=== PATIENT | male | born 1945 ===

== ENCOUNTER 2017-01-01 15:30 | Emergency (ER) | payer MEDICARE, BC ==
--- NOTE | 2017-01-01 16:22 | UC ---
Hip/Pelvis Pain - HPI Summary HPI Summary: 71 yo male was using chainsaw cutting firewood fell backwards landing on left buttock was able to get right up and continue cutting drove tractor in from [place] and noted increased pain/swelling remote hx pelvis fx - History Of Current Complaint Chief Complaint: UCLowerExtremity Stated Complaint: HIP INJURY Time Seen by Provider: 01/01/17 15:36 Hx Obtained From: Patient Mechanism Of Injury: fell backwards Onset/Duration: Sudden Onset Timing: Constant Severity Initially: Mild Severity Currently: Moderate Pain Intensity: 4 - 8-10 if he sits Pain Scale Used: 0-10 Numeric Location: Discrete At: - left buttodk Character Of Pain: Dull, Aching Aggravating Factor(s): Other - sitting Alleviating Factor(s): Position Associated Signs And Symptoms: Positive: Swelling - Allergies/Home Medications Allergies/Adverse Reactions: Allergies Allergy/AdvReac Type Severity Reaction Status Date / Time Penicillin G Allergy Hives Verified 01/01/17 15:41 Home Medications: Home Medications Cyanocobalamin [Vitamin B 12] 500 mcg PO DAILY 01/01/17 [History Confirmed 01/01] Multiple Vitamins W/ Minerals [Centrum Silver 50+Men] 1 tab PO DAILY 01/01/17 [ History Confirmed 01/01/17] [place]-3 Fatty Acids [Fish Oil] 1,000 mg PO DAILY 01/01/17 [History Confirmed 06/15] PMH/Surg Hx/FS Hx/Imm Hx Previously Healthy: Yes - Surgical History Surgical History: Yes Surgery Procedure, Year, and Place: spleen removed, partial pancreas, 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 - Family History Known Family History: Positive: Hypertension - Social History Alcohol Use: Daily Substance Use Type: None Smoking Status (MU): Never Smoked Tobacco Review of Systems Constitutional: Negative Skin: Negative Eyes: Negative ENT: Negative Respiratory: Negative Cardiovascular: Negative Gastrointestinal: Negative Genitourinary: Negative Motor: Negative Neurovascular: Negative Musculoskeletal: Arthralgia, Myalgia Neurological: Negative Psychological: Negative Is Patient Immunocompromised?: No All Other Systems Reviewed And Are Negative: Yes Physical Exam Triage Information Reviewed: Yes Appearance: Well-Appearing, No Pain Distress, Well-Nourished Vital Signs: Initial Vital Signs Temp 97.3 F 01/01/17 15:36 Pulse 85 01/01/17 15:36 Resp 18 01/01/17 15:36 BP 145/77 01/01/17 15:36 Pulse Ox 100 01/01/17 15:36 Vital Signs Reviewed: Yes Eyes: Positive: Conjunctiva Clear ENT: Positive: Hearing grossly normal. Negative: Nasal congestion, Nasal drainage, Trismus, Muffled/hoarse voice Neck: Positive: Supple, Nontender Respiratory: Positive: Lungs clear, Normal breath sounds, No respiratory distress Cardiovascular: Positive: RRR, No Murmur Abdomen Description: Positive: Nontender, No Organomegaly, Soft Bowel Sounds: Positive: Present Musculoskeletal: Positive: ROM Intact, No Edema Neurological: Positive: Alert Psychological Exam: Normal Skin: Positive: rashes Diagnostics - Radiology No standard instances Xray Interpretation: No Acute Changes - IMPRESSION: Age indeterminant cortical irregularity at the iliopectineal line and inferior pubic ramus. These could be chronic findings but there is no radiographic available for comparison to be certain about chronicity. If there is strong clinical concern for fracture of the pelvis noncontrast CT of the pelvis is advised. Radiology Interpretation Completed By: Radiologist Re-Evaluation - Re-Evaluation First Eval Re-Evaluation Time: 17:04 Change: Unchanged - declines analgesic Hip Injury Course/Dx - Course Course Of Treatment: 1. Intramuscular hematoma involving the left gluteal musculature. 2. No acute fracture or dislocation. The cortical irregularity seen at the left pubic. ramus appears to be an old healed fracture. patient aware of need to go to ER if pain worsens - Differential Dx/Diagnosis Provider Diagnoses: Left gluteal hematoma Discharge - Discharge Plan Condition: Stable Disposition: HOME Prescriptions: Naproxen Sodium [Naproxen Sodium 500 MG TAB] 500 mg PO BID PRN #30 tab PRN Reason: Pain Patient Education Materials: Hematoma (ED) Referrals: Vivek Kerns MD [Medical Doctor] - 1 Day Additional Instructions: you have a large hematoma in your left gluteus muscle I suggest you get this recheck tomorrow sometimes these need to get evacuated to ER for worsening pain Images Front/Back of Body, Lg ([place]): 1 - tender/swollen
[2017-01-01] MEDS ORDERED: Naproxen TAB* 250 MG PO ONE (16:32)
--- NOTE | 2017-01-01 16:36 | RAD ---
INDICATION: Left hip pain overlying the left buttock after a fall COMPARISON: None TECHNIQUE: 3 views of the left hip were obtained. FINDINGS: On the AP view of the pelvis there is cortical irregularity along the iliopectineal line. There is also cortical irregularity at the inferior pubic ramus. There is no radiographically apparent fracture of the left hip. Degenerative changes of the bilateral hips include joint space narrowing and sclerotic change of the acetabular roof. IMPRESSION: Age indeterminant cortical irregularity at the iliopectineal line and inferior pubic ramus. These could be chronic findings but there is no radiographic available for comparison to be certain about chronicity. If there is strong clinical concern for fracture of the pelvis noncontrast CT of the pelvis is advised.
[2017-01-01 17:48] VITALS: BP 125/83
--- NOTE | 2017-01-01 17:56 | RAD ---
CLINICAL HISTORY: Left buttock pain after a fall COMPARISON: Same day radiograph TECHNIQUE: Multiple contiguous axial CT scans were obtained of the pelvis after the administration of intravenous contrast. Coronal and sagittal multiplanar reformations are submitted for review. FINDINGS: The visualized small and large bowel are not pathologically dilated. There are numerable rectosigmoid diverticula, not exhibiting acute inflammatory change. There is a small left sided fat-containing hernia. There is evidence of healed fracture involving the left superior and inferior pubic rami. Degenerative changes bilateral hips include loss of joint space and mild sclerotic change of the articulating services. No acute fracture or dislocation is identified. Within the right gluteal musculature there is a hematoma measuring approximately 6.2 x 7 cm in the axial plane and approximately 5.5 cm in the cephalocaudal projection. IMPRESSION: 1. Intramuscular hematoma involving the left gluteal musculature. 2. No acute fracture or dislocation. The cortical irregularity seen at the left pubic ramus appears to be an old healed fracture.
== END 2017-01-01 18:18 | disposition home or self-care (01) ==
LOC: UCEAST 15:30
DX: S30.0XXA Contusion of lower back and pelvis, initial encounter (principal); W18.39XA Other fall on same level, initial encounter; Y93.89 Activity, other specified; Y92.9 Unspecified place or not applicable; Z88.0 Allergy status to penicillin
CPT/HCPCS: 72192; 99212; A9270-GY; G0463

== ENCOUNTER 2018-03-07 15:17 | Emergency (ER) | payer MEDICARE, BC ==
--- OUTSIDE RECORDS SUMMARY | 2018-03-07 15:23 | XMS REPORT | Continuity of Care Document ---
:1945 External Reference #:[id number] Author Name Sonya Wells Care Team Providers Name Role Phone Junior Chaney MD Primary Care Physician Unavailable Payers Type Date Identification Numbers Payment Provider Subscriber Policy Number: [id number] Medicare Darrell Lewis PayID: [id number] [address] [facility] [place] [address] Expires: 2018 Policy Number: [id number] Medicare Darrell Lewis PayID: [id number] [address] [place] [address] Policy Number: [id number] [facility] Darrell Lewis PayID: [id number] [address] [place] [address] Advance Directives Description No Information Available Problems Description No Information Family History Date Family Member(s) Problem(s) Comments General Cancer General Hypertension Social History Type Date Description Comments Sex Unknown Lives With Occupation Unemployed ETOH Use Occasionally consumes alcohol Tobacco Use Start: Unknown Patient has never smoked Smoking Status Reviewed: 02/26/18 Patient has never smoked Exercise Type/Frequency Exercises regularly Allergies, Adverse Reactions, Alerts Date Description Reaction Status Severity Comments 07/22/2014 Penicillin Active 07/22/2014 Shellfish-derived Products Active Medications Medication Date Status Form Strength Qnty SIG Indications Ordering Provider Nascobal / Active Solution 500mcg/0.1 1000mcg Unknown 0000 ML intranal every week Singulair 00/ Active Tablets 10mg 1 by mouth Unknown 0000 every day Vitamin D / Active Iu 50,000 2x/week x Unknown 0000 6 weeks, then once weekly x 8 weeks Fish Oil / Active Capsules 1000mg 1 by mouth Unknown 0000 every day Aspirin Ec / Active Tablets DR 325mg 1 by mouth Unknown 0000 every day Calcium Citrate / Active 600mg as Unknown 0000 directed Multivitamins / Active as Unknown 0000 directed Famciclovir / Active Tablets 250mg take one Unknown 0000 capsule/ta blet by mouth twice daily (please cancel the 500mg dose that was sent in) Vitamin B12 / Active Unknown 0000 Bactrim DS / Hx Tablets 800-160mg 1 by mouth Unknown 0000 - twice a 2017 Immunizations Description No Information Available Vital Signs Date Vital Result Comment 02/26/2018 1:37pm Height 72 inches 6'0" Weight 205.00 lb Heart Rate 60 /min BP Systolic 158 mmHg BP Diastolic 92 mmHg Body Temperature 97.1 F Pain Level 8 BMI (Body Mass Index) 27.8 kg/m2 09/13/2014 12:35pm Height 72 inches 6'0" Weight 188.00 lb Pain Level 0 BMI (Body Mass Index) 25.5 kg/m2 08/12/2014 11:44am Height 72 inches 6'0" Weight 188.00 lb Pain Level 0 BMI (Body Mass Index) 25.5 kg/m2 07/22/2014 11:27am Height 72 inches 6'0" Weight 188.00 lb Heart Rate 57 /min BP Systolic Sitting 123 mmHg BP Diastolic Sitting 71 mmHg Pain Level 1 BMI (Body Mass Index) 25.5 kg/m2 Results Description No Information Available Procedures Description No Information Available Encounters Type Date Location Provider Dx Diagnosis Office Visit 02/26/2018 Orthopedic Matt Payton M.D. M16.11 Unilateral primary 1:[facility]p [facility] osteoarthritis, right hip Office Visit 09/13/2014 [facility] Adriana Liao, 813.13 ABDOULAYE [place] 11:50a [facility] Anguiano Open Office Visit 08/12/2014 Orth[facility] Adriana Liao 813.13 FX Tresa [place] 11:45a [facility] Casas 844.1 Sprains & Strains Knee Medial Collateral Ligament Office Visit 07/22/2014 11:00a Orthopedic Adriana 813.13 ABDOULAYE [place] [facility] Future Appointment(s):04/09/2018 11:00 am - Matt Payton M.D. at [facility]03/03/2018 1:00 pm - Shawn Mendez MD at [facility]02/26/2018 - Matt Payton M.D.M16.11 Unilateral primary osteoarthritis, right hipNew Therapy:Physical TherapyFollow up:Follow up: Dr. Mendez next available for right hip injection under ultrasound control O/V with Dr. Payton 6 weeks after that or as needed OK to try advil or aleve for pain Decrease the weight on the leg press machine
--- OUTSIDE RECORDS SUMMARY | 2018-03-07 15:23 | XMS REPORT | Continuity of Care Document ---
:1945 External Reference #:[id number] Author Name Sonya Wells Care Team Providers Name Role Phone Junior Chaney MD Primary Care Physician Unavailable Payers Type Date Identification Numbers Payment Provider Subscriber Policy Number: [id number] Medicare Darrell Lewis PayID: [id number] [address] [place] [address] Expires: 2018 Policy Number: [id number] Medicare Darrell Lewis PayID: [id number] [address] [place] [address] Policy Number: [id number] [facility] Darrell Lewis PayID: [id number] [address] [place] [address] Advance Directives Description No Information Available Problems [...] Available Vital Signs Date Vital Result Comment 03/03/2018 1:03pm Height 72 inches 6'0" Weight 205.00 lb Heart Rate 58 /min BP Systolic 138 mmHg BP Diastolic 68 mmHg Respiratory Rate 16 /min Body Temperature 97.4 F Pain Level 2 BMI (Body Mass Index) 27.8 kg/m2 02/26/2018 1:37pm Height 72 inches 6'0" Weight [...] BMI (Body Mass Index) 25.5 kg/m2 Results Test Date Facility Test Result H/L Range Note Xray 03/03/2018 Skilled Nursing Professional In House Inj/Aspir Major JT Or Bursa W/ <pending> US Procedures Date Code Description Status 03/03/2018 52279 Inj/Aspir Major JT Or Bursa W/ US Completed Encounters Type Date Location Provider Dx Diagnosis Office Visit 09/13/2014 [facility] Adriana Liao, 813.13 FX Tresa [facility] 11:50a [facility] M.D. Open Office Visit 08/12/2014 Orthopedic Adriana Liao, 813.13 FX Tresa FX 11:45a [facility] 844.1 Sprains & Strains Knee Medial Collateral Ligament Office Visit 07/22/2014 11:00a Orthopedic Adriana 813.13 FX Tresa FX [facility] Plan of Treatment Future Appointment(s):04/09/2018 11:00 am - Matt Payton M.D. at [facility]/03/2018 - Shawn Mendez, MDM16.11 Unilateral primary osteoarthritis, right hipFollow up:Follow up: in approximately [address] Payton as previously [id number] Pain in right hip
--- NOTE | 2018-03-07 15:35 | UC ---
Shoulder Pain HPI - HPI Summary HPI Summary: 72 yo male presents with RIGHT shoulder pain. 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 Today he felt popping in his right shoulder and had immediate pain. Now hurts to raise arm >90deg. Has not taken anything for pain. Denies numbness or tingling. - History of Current Complaint Chief Complaint: UCUpperExtremity Stated Complaint: SHOULDER INJURY Time Seen by Provider: 03/07/18 15:34 Hx Obtained From: Patient Onset/Duration: Sudden Onset Severity Initially: Mild Severity Currently: Mild Pain Intensity: 2 Pain Scale Used: 0-10 Numeric - Allergies/Home Medications Allergies/Adverse Reactions: Allergies Allergy/AdvReac Type Severity Reaction Status Date / Time Penicillins Allergy Hives Verified 03/07/18 15:31 shellfish derived Allergy Swelling Verified 03/07/18 15:31 Of Face,Lips,& Throat Home Medications: Home Medications Mometasone NASAL (NF) [Nasonex (NF)] 50 mcg INH BID 03/07/18 [History Confirmed 03/07/18] Montelukast Sodium TAB* [Singulair 10 MG TAB*] 10 mg PO DAILY 03/07/18 [History Confirmed 03/07/18] PMH/Surg Hx/FS Hx/Imm Hx Cardiovascular History: Hypertension Respiratory History: Asthma - Surgical History Surgical History: Yes Surgery Procedure, Year, and Place: spleen removed, partial pancreas, 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 - Family History Known Family History: Positive: Hypertension - Social History Occupation: Retired Lives: With Family Alcohol Use: Daily Substance Use Type: None Smoking Status (MU): Never Smoked Tobacco Review of Systems All Other Systems Reviewed And Are Negative: Yes Constitutional: Positive: Negative Skin: Positive: Negative Respiratory: Positive: Negative Cardiovascular: Positive: Negative Neurovascular: Positive: Negative Musculoskeletal: Positive: Other: - Right shoulder pain Neurological: Positive: Negative Psychological: Positive: Negative Physical Exam - Summary Physical Exam Summary: GENERAL: NAD. WDWN. No pain distress. SKIN: No rashes, sores, lesions, or open wounds. CHEST: No accessory muscle use. Breathing comfortably and in no distress. CV: Pulses intact radial and ulnar. Cap refill <2seconds MSK: RIGHT SHOULDER: NTTP. Decreased strength due to pain. Heavy Equipment Operating Engineer strength intact. Able to flex to 180deg, but significant pain >90deg. No edema or obvious bony deformities. POSITIVE yergason and o'luz. Negative apprehension, empty can, rios-katie NEURO: Alert. Sensations intact hand and all fingers. PSYCH: Age appropriate behavior. Triage Information Reviewed: Yes Vital Signs: Initial Vital Signs Temp 98.4 F 03/07/18 15:23 Pulse 70 03/07/18 15:23 Resp 16 03/07/18 15:23 BP 190/100 03/07/18 15:23 Pulse Ox 100 03/07/18 15:23 Vital Signs Reviewed: Yes Shoulder Course/Dx - Course Course Of Treatment: XR: IMPRESSION: No fracture of the right shoulder is noted. AC joint arthritis is noted. Suspect possible labrum involvement or RTC injury. Pt placed in a sling and advised to RICE and f/u with Ortho. - Differential Dx/Diagnosis Provider Diagnosis: Right shoulder pain Discharge - Sign-Out/Discharge Documenting (check all that apply): Patient Departure All imaging exams completed and their final reports reviewed: Yes - Discharge Plan Condition: Stable Disposition: HOME Patient Education Materials: Shoulder Pain (ED), Early Postoperative or Post Injury Shoulder Exercises (ED) Referrals: Junior Chaney MD [Primary Care Provider] - Shawn Mendez MD [Medical Doctor] - As Soon As Possible Additional Instructions: If you develop a fever, shortness of breath, chest pain, new or worsening symptoms - please call your PCP or go to the ED. Your blood pressure was high at todays visit. Please see your primary provider within 4 weeks for recheck and re-evaluation. 1) Use the sling as much as possible 2) continue your aleve and may take tylenol in addition for pain 3) Please call Dr. Mendez at the number below to schedule a follow up appointment - Billing Disposition and Condition Condition: STABLE Disposition: Home
[2018-03-07 15:54] VITALS: BP 180/90
== END 2018-03-07 16:23 | disposition home or self-care (01) ==
LOC: UCEAST 15:17
DX: M25.511 Pain in right shoulder (principal); X50.0XXA Overexertion from strenuous movement or load, initial encounter; Y93.B9 Activity, other involving muscle strengthening exercises; Y92.9 Unspecified place or not applicable; Z88.0 Allergy status to penicillin; I10 Essential (primary) hypertension; J45.909 Unspecified asthma, uncomplicated
CPT/HCPCS: 99212; G0463

== ENCOUNTER 2018-06-20 08:44 | Day surgery (SDC) | payer MEDICARE, BC ==
[~2018-06-20 08:44] MED LIST: Buffered Lidocaine 1% SYRIN* 1 ML/SYRINGE INTRADERM ONE; Dexamethasone IV* 4 MG/ML 1 ML (4 MG) IV SLOW PU ONE; Famotidine IV* 10 MG/ML 2 ML (20 mg) IV ONE; Lactated Ringers 1000 ML Bag* 1,000 ML IV SCH
[2018-06-20] MEDS ORDERED: Dexamethasone IV* 4 MG/ML 1 ML (4 MG) ONE (08:59)
[2018-06-20] MEDS ORDERED: Famotidine IV* 10 MG/ML 2 ML (20 mg) ONE (08:59)
[2018-06-20] MEDS ORDERED: Clindamycin 900 MG/D5W BAG(*) 900 MG/50 ML BAG IVPB ONE (08:59)
[2018-06-20] MEDS ORDERED: fentaNYL* 50 MCG/ML 2 ML VIAL (100 MCG VIAL) ONE ×2 (11:43→14:32)
[2018-06-20] MEDS ORDERED: Midazolam* 1 MG/ML 2 ML VIAL (2 MG) ONE (11:43)
[2018-06-20] MEDS ORDERED: Propofol* 10 MG/ML 20 ML BTL ONE (11:43)
[2018-06-20] MEDS ORDERED: Rocuronium* 10 MG/ML VIAL ONE (11:43)
[2018-06-20] MEDS ORDERED: Lidocaine 2% PF * 5 ML VIAL ONE (11:43)
[2018-06-20] MEDS ORDERED: EPINEPHRINE 1 MG/ML 1 ML VIAL ONE (12:10)
[2018-06-20] MEDS ORDERED: Bupivacaine 0.5% W/EPI SDV* 30 ML VIAL ONE (12:10)
[2018-06-20] MEDS ORDERED: Ketorolac INJ* 30 MG/ML 1 ML VIAL IV PRN (12:17)
[2018-06-20] MEDS ORDERED: fentaNYL* 50 MCG/ML 2 ML VIAL (100 MCG VIAL) IV PRN (12:17)
[2018-06-20] MEDS ORDERED: DiMENhydriNATE IV* 50 MG/ML VIAL IV PUSH PRN (12:17)
[2018-06-20] MEDS ORDERED: oxyCODONE/Acetamin 5/325 MG* TAB PO PRN (12:17)
[2018-06-20] MEDS ORDERED: Naloxone* 0.4 MG/ML 1 ML VIAL IV PRN (12:17)
[2018-06-20] MEDS ORDERED: HYDROcodone/ACETAMIN 5-325 MG* 1 TAB PO PRN (12:17)
[2018-06-20] MEDS ORDERED: ROPIVACAINE 5 MG/ML 30 ML BTL (0.5%) ONE (12:38)
[2018-06-20] MEDS ORDERED: EPHEDrine (Pressors)* 50 MG/ML VIAL ONE (13:27)
[2018-06-20] MEDS ORDERED: Ondansetron INJ* 2 MG/ML VIAL ONE (15:14)
[2018-06-20 17:36] VITALS: BP 150/77
--- NOTE | 2018-06-22 03:27 | OP ---
OPERATIVE REPORT: DATE OF OPERATION: 06/20/18 DATE OF : 47 SURGEON: Shawn Mendez MD. SURVEY TECHNOLOGIST: LAUREN Wilcox. A physician senior underwriting assistant was required for the length of procedure for assistance with patient positionin g, instrumentation, and closure. ANESTHESIOLOGIST: Dr. Kaycee Ramirez. ANESTHESIA: General anesthesia, regional interscalene block anesthesia. PREOPERATIVE DIAGNOSES: 1. Right shoulder AC joint osteoarthritis. 2. Right shoulder subacromial impingement and bursitis. 3. Right shoulder proximal biceps tendonitis. 4. Right shoulder low grade intrasubstance tears, supraspinatus, subscapularis. POSTOPERATIVE DIAGNOSES: 1. Right shoulder rotator cuff tendon tear, high grade, bursal sided, with retraction, supraspinatus . 2. Right shoulder intrasubstance tear, low grade, subscapularis and rotator cuff. 3. Right shoulder AC joint osteoarthritis. 4. Right shoulder subacromial impingement and bursitis. 5. Right shoulder significant long head of biceps tendonitis, partial tear. OPERATIVE PROCEDURE: 1. Right shoulder arthroscopic rotator cuff tendon repair, high grade, bursal sided supraspinatus, w ith 3 anchors, double row repair. 2. Right shoulder arthroscopic subacromial decompression. 3. Right shoulder distal clavicle resection, arthroscopic. 4. Right shoulder arthroscopic limited debridement including debridement of rotator cuff interval do wn to the base of the coracoid for rotator cuff mobilization as well as debridement of subscapularis tendon and undersurface supraspinatus tendon and release of biceps tendon. ANTIBIOTICS: Clindamycin 900 mg IV. IV FLUIDS: See anesthesia notes. OVAP-UU-PVCM TIME: 99 minutes. ARTHROSCOPY FLUIDS UTILIZED: 12 bags, each of 3 L, for a total of 36 L. SPECIMEN: None. IMPLANTS: Mitek Healix anchors, two 5.5 mm anchors each with two pairs of sutures and 1 knotless Hea lix 5.5 suture anchor. COMPLICATIONS: None. ESTIMATED BLOOD LOSS: Minimal. INDICATIONS FOR PROCEDURE: The patient is a 72-year-old man, who injured his right shoulder 3-1/2 mo nths preoperatively, on 03/07/18. The patient failed a spectrum of nonoperative treatment, complete, and opted for surgery. The patient's MRI did not show a significant rotator cuff tendon tear, the p atient's nighttime pain as well as his description of a pop with his initial fall, kept me vigilant t o the idea that the patient might have a significant rotator cuff tendon tear or some other pathology not fully appreciated by MRI imaging. DESCRIPTION OF PROCEDURE: In the preoperative holding, the patient signed direct consent. The opera tive extremity was marked in the preoperative holding. The patient underwent regional interscalene n erve block by Dr. Kaycee Ramirez. The patient was taken to the operative room, placed supine on the o perating room table, sedated and intubated. Transferred to the lateral decubitus position. An axill ulices roll was placed. Guillen bag was hardened. All bony prominences were padded. Longitudinal traction for the right shoulder. Right shoulder was prepped and draped. Surgical time-out performed. Then 30 cc injected into the glenohumeral joint with a spinal needle. Established a posterior glenoh umeral joint portal. No significant articular cartilage loss. Examination of the subscapularis demon strated an intrasubstance tear just as seen on MRI. Articular side and bursal side were well affixed to their attachments on bone. Some fraying at first about the superior labrum. I established an an terior glenohumeral joint portal under direct visualization. I brought the arthroscopic shaver in from anterior, debrided superior labrum. At first I did not aakash nuvia see long head biceps tendon. Then, it was cleared that some more part to it or all of it was fi rmly affixed to the undersurface of the rotator cuff and rotator cuff interval tissue. Because of si gnificant inflammation about it, as well as because of the intrasubstance tear on the subscapularis, we decided to perform a long head biceps tendon release. I first released the long head biceps tendon away from the undersurface of the rotator cuff and rotat or cuff interval. Then, I cut it at its origin. I debrided the superior labrum tissue. I debrided rotator cuff interval tissue. I debrided some tissue about the superior aspect of the subscapularis to confirm my view of the low g rade intrasubstance tear. I turned my attention to the supraspinatus. There was some clear undersurface tearing as demonstrate d by some exposed footprint, approximately 4 mm. There was no articular-sided tendon tear visible, h owever. No clear tendon that could be brought down to the bone. The view of the supraspinatus was somewhat difficult to make out based on where my arthroscope was go ing through the rotator cuff tissue into the joint. To get a better feel for the rotator cuff status , I decided to move subacromial. I established subacromial portals, anterior and posterior. I established lateral and then posterolat eral portals under direct visualization. Interestingly, what I discovered in the subacromial space is that the patient had a high-grade supras pinatus rotator cuff tendon tear. The patient had an L or reverse L-shaped tear with a significant retraction of the anterior most aspe ct of the supraspinatus, but less retraction more posterior. At first I thought this was a full thic kness tear, but when I debrided with an arthroscopic shaver, it became clear that there was an intact articular-sided component of the supraspinatus. I debrided about the tear with an arthroscopic shaver lightly through. This told me that there was i ntact, healthy supraspinatus tissue at the articular side. To aid and abet in healing, I decided to agree that layer intact, but to repair on top of it the bursal-sided or almost the whole thickness of supraspinatus tendon tissue. This was clearly a high-grade tear, more than 50% of the depth of the tendon. I cleared off the supraspinatus footprint on the humeral head with a VAPR. I was careful not to debr gautam any of the intact insertion of the undersurface tendon. I then prepared the bone with an arthros copic genesis. I also performed a subacromial decompression, clearing off the undersurface of the acromion with a VA MD and then removing the anterior curve of the acromion and flattening out its undersurface with an a rthroscopic genesis. I next spend some time trying to figure out how the rotator cuff wanted to lay back down to bone. It appeared to be under some tension, so I pulled with a rotator cuff grasper in a variety of direction s to determine the most tension-free way for it to be repaired. Because it was under some tension, I made sure to release it superiorly. I also released it anterior with an anterior interval slide, with debridement through the rotator cuff interval to the base of t coracoid with an arthroscopic shaver and a VAPR. I next placed 2 medial row anchors through separate superolateral stab incisions. These started out a s triple loaded anchors, but I removed one suture from each. I passed the sutures with an antegrade suture passer and tied horizontal mattress stitches, moving from posterior to anterior. This brought tendon nicely to bone. I took these sutures from the medial row and placed them into a lateral row k notless anchor. The repair was stable to probing and to movement of the shoulder. I next moved to the AC joint. I debrided that joint of its bursitic tissue with an arthroscopic VAPR . I then removed 8 mm of the distal end of the clavicle with an arthroscopic genesis. I removed instruments from the subacromial space. I closed the skin incisions with [id number] i n 12 stitches, using nylon 3.0 suture. Xeroform, 4x4s, ABDs, foam tape. The patient was placed in a sling and abduction pillow. The patient was awakened and extubated and brought to the PACU. DISPOS ITION: The patient was discharged home with wound care instructions. Sling and abduction pillow at all times. Percocet as needed for pain control. No physical therapy. The patient will followup nora zavala in 10 to 14 days postoperatively. [id number]/[facility] #: [id number]
== END 2018-06-20 17:41 | disposition home or self-care (01) ==
LOC: OR 08:44
PROVIDERS: ATTEND Orthopaedic Surgery
DX: S46.011A Strain of muscle(s) and tendon(s) of the rotator cuff of right shoulder, initial encounter (principal); M75.51 Bursitis of right shoulder; M75.41 Impingement syndrome of right shoulder; Z88.0 Allergy status to penicillin; Z86.718 Personal history of other venous thrombosis and embolism; E55.9 Vitamin D deficiency, unspecified; I10 Essential (primary) hypertension; E78.5 Hyperlipidemia, unspecified; Z85.820 Personal history of malignant melanoma of skin; X58.XXXA Exposure to other specified factors, initial encounter; Y92.9 Unspecified place or not applicable; G89.18 Other acute postprocedural pain
CPT/HCPCS: J1100; J2250; J2405; J2704; J2795; J3010

== ENCOUNTER → 2019-03-06 07:54 | Day surgery (SDC) | payer MEDICARE, BC ==
[~2019-03-06 07:54] MED LIST changes: +Acetaminophen TAB* 325 MG ONE; +Acetaminophen TAB* 325 MG PO PRN; +Bupivacaine 0.5% W/EPI SDV* 10 ML VIAL INJ ONE; +Clindamycin 900 MG/D5W BAG(*) 900 MG/50 ML BAG IVPB ONE; -Dexamethasone IV* 4 MG/ML 1 ML (4 MG) IV SLOW PU ONE; -Famotidine IV* 10 MG/ML 2 ML (20 mg) IV ONE; +KETAMINE HCL* 50 MG/ML 10 ML VIAL ONE; +Ketorolac INJ* 30 MG/ML 1 ML VIAL IV PRN; +Ketorolac INJ* 30 MG/ML 1 ML VIAL ONE; -Lactated Ringers 1000 ML Bag* 1,000 ML IV SCH; +Lidocaine 1% INJ* 10 MG/ML 30 ML SDV ONE; +Lidocaine 2% PF * 5 ML VIAL ONE; +Midazolam* 1 MG/ML 2 ML VIAL (2 MG) ONE; +Naloxone* 0.4 MG/ML 1 ML VIAL IV PRN; +Ondansetron INJ* 2 MG/ML VIAL IV PRN; +Propofol* 500 MG/50 ML BTL ONE; +ceFAZolin 2 GM PREMIX in ORs 2 GM/50 ML BAG ONE; +fentaNYL* 50 MCG/ML 2 ML VIAL (100 MCG VIAL) IV PRN; +oxyCODONE TAB* 5 MG TAB PO PRN
--- NOTE | 2019-03-06 11:57 | OP ---
Operative Report - Blank - Operative Report Date of Operation: 03/06/19 Note: OPERATIVE NOTE Pre-Operative Diagnosis:left inguinal hernia Post-Operative Diagnosis:Left indirect inguinal hernia Procedure:Open repair with mesh of left indirect inguinal hernia Surgeon: Suzanne Bautista MD Dice Manager:Mian Armando NP Anesthesia: Local with MAC General with Dr. Garcia IVF:1 liter crystalloid EBL:min Specimen:None Drain: none Wound Class:One Finding: Indirect inguinal hernia TO PACU
[2019-03-06 12:52] VITALS: BP 127/75
--- NOTE | 2019-03-06 20:50 | OP ---
DATE OF OPERATION: 03/06/19 [facility] DATE OF : 47 SURGEON: Aubrey Bautista MD LOG DECK TENDER: Mitali Armando NP. ANESTHESIOLOGIST: Dr. Garcia. ANESTHESIA: General with local. PRE-OP DIAGNOSIS: Left inguinal hernia. POST-OP DIAGNOSIS: Left indirect inguinal hernia. OPERATIVE PROCEDURE: Open repair with mesh of the left indirect inguinal hernia. ESTIMATED BLOOD LOSS: Minimal. IV FLUIDS: 1 L of crystalloids. SPECIMENS: None. DRAINS: None. COMPLICATIONS: None. WOUND CLASSIFICATION: 1. FINDINGS: Left indirect inguinal hernia with large cord lipoma. DESCRIPTION OF PROCEDURE: Written informed consent was obtained. The left groin was marked with indelible ink and preoperative antibiotics were administered. The patient was taken to the operating room and placed in the supine position. Sequential compression devices with a warming blanket were applied. Anesthesia was administered. The left lower abdomen and left groin were prepped and draped in the usual sterile fashion. Time-out verification was completed. 0.25% Marcaine mixed with 1% lidocaine was then infiltrated extensively in the left groin and oblique incision several finger breaths above the inguinal crease was made, carried down to the Cristine's fascia. The external oblique aponeurosis was identified and opened in the direction of its fibers. The spermatic cord had a rather large cord lipoma, apparent cord lipoma was encircled at the pubic tubercle with one quarter inch [place] drain. We carefully evaluated the inguinal floor. The direct space appeared to be intact without evidence of hernia. There was a rather large cord lipoma extending down to a fairly patulous internal ring and this was from the cord structures up into the internal ring and ligated with a 3-0 Vicryl suture. No specimen was sent. I evaluated the cord structures carefully. The vas deferens and structures were identified and protected. Very careful evaluation up into the internal ring revealed no evidence of an indirect peritoneal hernia sac, however, but the internal ring was quite patulous. I suspected that what was felt on physical exam was the large cord lipoma. Once this was complete, the pre cut Covidien self-griping polyester mesh was then placed and sutured to the pubic tubercle with a horizontal mattress 0 Vicryl suture. It was secured to the conjoint tendons superiorly, the musculature laterally and the inguinal ligament inferiorly with its ProGrip Velcro self- gripping surface. Two separate 0 Vicryl sutures were used to secure the mesh inferiorly along the inguinal ligament shelving edge. The internal ring was then reconstructed nicely. It should be noted that I did sacrifice the left ilioinguinal nerve as this was crossing over the path of the mesh and I felt this would cause injury, could possibly cause discomfort and it was excised deep up into the lateral musculature. Hemostasis was assured. Additional Marcaine was infiltrated. The external oblique aponeurosis was closed with running 3-0 Vicryl suture. Cristine fascia was closed with interrupted 3-0 Vicryl suture. The skin was approximated with a subcuticular 4-0 Vicryl suture. Steri-Strips applied. The patient tolerated the procedure well and was taken to the recovery room in stable condition. [id number]/[facility] #: [id number] MTDD
== END | disposition home or self-care (01) ==
LOC: OR 07:54
PROVIDERS: ATTEND Surgery
DX: K40.90 Unilateral inguinal hernia, without obstruction or gangrene, not specified as recurrent (principal); Z85.820 Personal history of malignant melanoma of skin; M19.90 Unspecified osteoarthritis, unspecified site; Z87.891 Personal history of nicotine dependence; Z88.0 Allergy status to penicillin; Z86.718 Personal history of other venous thrombosis and embolism
CPT/HCPCS: A9270-GY; J0690; J1885; J2250; J2704